=== PATIENT | male | born 1935 | race Caucasian/White ===

== ENCOUNTER 2017-09-14 07:19 | Day surgery (SDC) | payer MEDICARE ==
[2017-09-12 12:05] VITALS: BP 134/66
[2017-09-12 12:16] LABS: MEAN CORPUSCULAR HEMOGLOBIN 32.5 pg (27.0-33.0); MEAN CORPUSCULAR HGB CONC 34.5 g/dL (32.0-36.0); MEAN CORPUSCULAR VOLUME 94.4 fL (79-99); PLATELET COUNT (AUTO) 98 K/uL (130-400); RED BLOOD CELL COUNT(AUTO) 3.61 MIL/uL (4.50-6.20); RED CELL DISTRIBUTION WIDTH 13.3 % (11.0-15.5); WHITE BLOOD COUNT (AUTO) 2.7 K/uL (4.8-10.8)
[2017-09-12 12:29] LABS: INR 2.05 (0.85-1.15); PARTIAL THROMBOPLASTIN TIME 41.4 SEC (26.3-35.5); PROTHROMBIN TIME 21.2 SEC (9.6-11.6)
[2017-09-12 12:30] LABS: CREATININE 1.2 mg/dL (0.5-1.5); POTASSIUM 4.3 mmol/L (3.5-5.1)
[2017-09-12 13:05] LABS: EOSINOPHILS % (MANUAL) 3 % (1-6); LYMPHOCYTES % (MANUAL) 10 % (22-44); MAN.DIFF COMMENT-IMPRESSION MANUAL DIFFERENTIAL; MONOCYTES % (MANUAL) 14 % (2-9); SEGMENTED NEUTROPHILS % 73 % (40-70)
[2017-09-12 13:06] LABS: PLATELET MORPHOLOGY COMMENT DECREASED
[~2017-09-14] VITALS: Ht 172.7 cm; Wt 98.0 kg
[2017-09-14] VITALS (11 sets, daily range): BP systolic 104–151; BP diastolic 57–79
[~2017-09-14 07:19] MED LIST: DUTA1CPM PO; FURO20TA4 PO; GUAI-787 PO; METO-391 PO; NITR0.4T SL; PRAV80TA21 PO; SODIUM CHLORIDE 0.9% 1000ML 1,000 ML IV SCH; WARF6TAB49 PO; WARF7.5T49 PO
[2017-09-14] MEDS ORDERED: FLUT16H NASAL (08:48)
[2017-09-14] MEDS ORDERED: OLOP2.5D6 OP (08:52)
[2017-09-14] MEDS ORDERED: CEFAZOLIN 1GM / D5W 50ML 150 ML ONE (09:02)
[2017-09-14] MEDS ORDERED: BUPIVACAINE/PF 0.25% 30ML VIAL IJ ONE (09:02)
[2017-09-14] MEDS ORDERED: MEPERIDINE-PF 25 MG/ML SYG ONE ×2 (09:03→10:25)
[2017-09-14] MEDS ORDERED: LIDOCAINE HCL 1% MDV 50ML VIAL ONE (09:03)
[2017-09-14] MEDS ORDERED: MIDAZOLAM HCL 1 MG/ML 2ML VIAL ONE ×2 (09:03→10:25)
[2017-09-14] MEDS ORDERED: TRAM50TA4 PO (11:40)
[2017-09-14] MEDS ORDERED: ACETAMINOPHEN-CODEINE 300/30MG TAB PO PRN ×2 (11:45)
[2017-09-14] MEDS ORDERED: ACETAMINOPHEN 325 MG TAB PO PRN (11:45)
== END 2017-09-14 15:30 | disposition home or self-care (01) ==
LOC: DAH 07:19
PROVIDERS: ATTEND Internal Medicine Cardiovascular Disease
DX: Z45.02 Encounter for adjustment and management of automatic implantable cardiac defibrillator (principal); I48.0 Paroxysmal atrial fibrillation; I50.32 Chronic diastolic (congestive) heart failure; I25.10 Atherosclerotic heart disease of native coronary artery without angina pectoris; Z79.01 Long term (current) use of anticoagulants; I48.2 Chronic atrial fibrillation; I11.0 Hypertensive heart disease with heart failure; E78.00 Pure hypercholesterolemia, unspecified; Z98.890 Other specified postprocedural states; Z95.2 Presence of prosthetic heart valve; Z85.828 Personal history of other malignant neoplasm of skin
CPT/HCPCS: 33264; 36415; 80048; 85025; 85610; 85730; 93005; 99156; 99157; A4606; C1882; J0690; J2175 ×2; J2250 ×2; J3490 ×2; J7030; 99152; 99153

== ENCOUNTER 2018-10-29 17:22 | Observation (INO) | payer MEDICARE ==
[~2018-10-29] VITALS: Ht 175.3 cm; Wt 96.2 kg
[~2018-10-29 17:22] MED LIST changes: +FLUT16H NASAL; +OLOP2.5D6 OP; -SODIUM CHLORIDE 0.9% 1000ML 1,000 ML IV SCH; +TRAM50TA4 PO
[2018-10-29] MEDS ORDERED: ASPIRIN 325 MG TABLET ONE (17:35)
[2018-10-29 17:56] LABS: BASOPHILS % (AUTO) 0.7 % (0.0-5.0); EOSINOPHILS % (AUTO) 0.9 % (0.0-8.0); HEMATOCRIT 36.1 % (42-54); LYMPHOCYTES % (AUTO) 17.1 % (21.0-51.0); MEAN CORPUSCULAR HEMOGLOBIN 32.6 pg (27.0-33.0); MEAN CORPUSCULAR HGB CONC 34.4 g/dL (32.0-36.0); MEAN CORPUSCULAR VOLUME 94.9 fL (79-99); MONOCYTES % (AUTO) 9.3 % (3.0-13.0); NUCLEATED RED BLOOD CELLS 0.1 % (0.0-0.19); PLATELET COUNT (AUTO) 112 K/uL (130-400); RED BLOOD CELL COUNT(AUTO) 3.81 MIL/uL (4.50-6.20); RED CELL DISTRIBUTION WIDTH 13.9 % (11.0-15.5); WHITE BLOOD COUNT (AUTO) 3.9 K/uL (4.8-10.8)
[2018-10-29 18:09] LABS: CREATININE 1.2 mg/dL (0.5-1.5); INR 2.59 (0.85-1.15); PARTIAL THROMBOPLASTIN TIME 37.6 SEC (26.3-35.5); POTASSIUM 3.7 mmol/L (3.5-5.1); PROTHROMBIN TIME 26.7 SEC (9.6-11.6)
[2018-10-29 18:13] LABS: ALBUMIN 3.6 g/dL (3.5-5.0); BILIRUBIN,TOTAL 0.9 mg/dL (0.2-1.0); TOTAL PROTEIN, SERUM 6.7 g/dL (6.0-8.3)
[2018-10-29 18:24] LABS: B-TYPE NATRIURETIC PEPTIDE 238 pg/mL (0-100)
[2018-10-29] MEDS ORDERED: NITROGLYCERIN 1GM/1 INCH PACKET TD ONE (18:42)
[2018-10-29] MEDS ORDERED: ACETAMINOPHEN 325 MG TAB PO PRN (20:00)
[2018-10-29] MEDS ORDERED: ONDANSETRON HCL 4 MG/2 ML VIAL IVP PRN (20:00)
[2018-10-29 22:45] VITALS: BP 158/87
[2018-10-29] MEDS ORDERED: [UNRECOGNIZED DRUG - CODE] PO (23:13)
[2018-10-29] MEDS ORDERED: PRAV80TA21 PO (23:13)
[2018-10-29] MEDS ORDERED: FURO40TA5 PO (23:13)
[2018-10-29] MEDS ORDERED: TAMS0.4C32 PO (23:13)
[2018-10-29] MEDS ORDERED: NITROGLYCERIN 0.4 MG SL TAB SL PRN (23:15)
[2018-10-30] MEDS ORDERED: ONDANSETRON HCL MDV 20ML 2 MG/ML VIAL IVP PRN (01:30)
[2018-10-30] MEDS ORDERED: PHARMACY COMMUNICATION MISC SCH (02:00)
--- NOTE | 2018-10-30 03:16 | NUR ---
st elevation Paged Gregorio Cruz [facility] Specialist re st elevation as per desk monitor.Pt denies chest pain.
--- NOTE | 2018-10-30 03:26 | NUR ---
OPAL WILKINSON mosquito sprayer called and notified re st elevation,new order noted.
[2018-10-30 03:28] VITALS: BP 140/73
[2018-10-30 06:17] LABS: HEMATOCRIT 33.7 % (42-54); MEAN CORPUSCULAR HEMOGLOBIN 32.6 pg (27.0-33.0); MEAN CORPUSCULAR HGB CONC 34.1 g/dL (32.0-36.0); MEAN CORPUSCULAR VOLUME 95.7 fL (79-99); NUCLEATED RED BLOOD CELLS 0.1 % (0.0-0.19); PLATELET COUNT (AUTO) 111 K/uL (130-400); RED BLOOD CELL COUNT(AUTO) 3.52 MIL/uL (4.50-6.20); RED CELL DISTRIBUTION WIDTH 13.8 % (11.0-15.5); WHITE BLOOD COUNT (AUTO) 3.3 K/uL (4.8-10.8)
[2018-10-30 06:35] LABS: INR 2.56 (0.85-1.15); PROTHROMBIN TIME 26.4 SEC (9.6-11.6)
[2018-10-30 06:43] LABS: ALBUMIN 3.2 g/dL (3.5-5.0); BILIRUBIN,TOTAL 0.8 mg/dL (0.2-1.0); CREATININE 1.2 mg/dL (0.5-1.5); MAGNESIUM 1.7 mg/dL (1.80-2.40); PHOSPHORUS 3.1 mg/dL (2.5-4.9); POTASSIUM 3.8 mmol/L (3.5-5.1); TOTAL PROTEIN, SERUM 5.9 g/dL (6.0-8.3)
[2018-10-30 08:00] VITALS: BP 129/71
[2018-10-30] MEDS ORDERED: TAMSULOSIN HCL 0.4 MG CAP.ER.24H PO SCH (09:00)
[2018-10-30] MEDS ORDERED: DILTIAZEM HCL 180 MG CAP.SR.24H PO SCH (09:00)
[2018-10-30] MEDS ORDERED: FUROSEMIDE 40 MG TABLET PO SCH (09:00)
[2018-10-30] MEDS: OLOPATADINE HCL 0.1% 5ML DROPS OP SCH (09:26)
[2018-10-30 11:00] VITALS: BP 144/80
--- NOTE | 2018-10-30 11:59 | NUR ---
Diet Education Patient reports knowledge of Coumadin and Low Sodium Diet education. RD provided reference materials for Vitamin K foods and Low Sodium diet tips, that patient was receptive to. Patient verbalized understanding. RD to follow-up. Addendum: 10/30/18 at [address] Amended: Links added.
--- NOTE | 2018-10-30 12:07 | NUR ---
RD Notification Upon visit, patient reports good appetite at 75% with no report of GI distress. Patient tolerating Heart Healthy diet. Patient LBM 10/29/18. RD provided informational handouts for Coumadin diet education and low sodium diet education. Patient was receptive. Patient monitored labs: Mg 1.70, Alb 3.2. Patient with updated food preferences. Patient with 2+, Bilateral ankle, non-pitting edema. Rec to continue on Heart Healthy Diet. RD to continue to monitor. Please notify RD as nutritional concerns arise. Thank you. Addendum: 10/30/18 at [address] RD Amended: Links added.
[2018-10-30 16:00] VITALS: BP 149/79
--- NOTE | 2018-10-30 17:00 | NUR ---
ABRAM SIERRA W PATIENT, AAOX3, ENG SPEAKING,, IND OF ADLS, NO DME EXCEPT CANE AT HOME, [facility] WILL PROVIDE TRANSPORT, PLAN IS HOME Addendum: 10/30/18 at 1826 by LISA LITTLE RN CM Amended: Links added.
[2018-10-30 20:00] VITALS: BP 160/88
[2018-10-30] MEDS ORDERED: WARFARIN SODIUM 2 MG TAB PO SCH (21:00)
[2018-10-30] MEDS ORDERED: WARFARIN SODIUM 7.5 MG TAB PO SCH ×2 (21:00)
[2018-10-30] MEDS ORDERED: ATORVASTATIN CALCIUM 20 MG TABLET PO SCH (21:00)
[2018-10-30] MEDS ORDERED: WARFARIN SODIUM 5 MG TAB PO SCH (21:00)
--- NOTE | 2018-10-30 21:30 | NUR ---
HOME MEDS Pt wants to take his own home meds.Medications given to Susanne [facility] for labeling.
[2018-10-31 00:43] VITALS: BP 154/86
[2018-10-31 04:38] VITALS: BP 159/82
[2018-10-31 05:25] LABS: INR 2.53 (0.85-1.15); PROTHROMBIN TIME 26.1 SEC (9.6-11.6)
--- NOTE | 2018-10-31 07:15 | NUR ---
NPO Pt npo for stress test,denies chest pain.
[2018-10-31] MEDS ORDERED: FINA5TAB41 PO (07:49)
[2018-10-31 08:00] VITALS: BP 143/79
[2018-10-31] MEDS: OLOPATADINE HCL 0.1% 5ML DROPS OP SCH (09:00)
[2018-10-31] MEDS ORDERED: DILTIAZEM HCL 180 MG PO SCH (09:00)
[2018-10-31] MEDS ORDERED: FUROSEMIDE 40 MG PO SCH (09:00)
[2018-10-31] MEDS ORDERED: TAMSULOSIN HCL 0.4 MG PO SCH (09:00)
[2018-10-31] MEDS: REGADENOSON 0.4 MG/5 ML PF SYG IVP SCH ×2 (12:45→16:17)
[2018-10-31] MEDS ORDERED: MAGNESIUM 2GM PREMIX 50ML 50 ML IV PRN (14:45)
[2018-10-31] MEDS ORDERED: WARFARIN SODIUM 7.5 MG PO SCH (16:00)
[2018-10-31 16:57] VITALS: BP 158/82
[2018-10-31 20:00] VITALS: BP 132/58
--- NOTE | 2018-10-31 20:00 | NUR ---
DISCHARGE ORDER Dr GUTIÉRREZ CAME AND DISCHARGE PT.NOTIFIED YUMI WILKINSON NP FOR BENCHMARK.PT ANXIOUS TO GO HOME.
--- NOTE | 2018-10-31 20:20 | NUR ---
DISCHARGED HOME Pt discharged home,iv dcd.cath tip intact,applied pressure until bleeding stopped.Pt verbalized understanding of instructions given.
[2018-10-31] MEDS ORDERED: PRAVASTATIN 80 MG PO SCH (21:00)
[2018-11-01] MEDS ORDERED: FINASTERIDE 5 MG TABLET PO SCH (09:00)
== END 2018-10-31 20:20 | disposition home or self-care (01) ==
LOC: EDH 17:22 → EDHIP 18:45 → 3BH 22:09 → EDHIP 22:10 → 3BH 22:20
PROVIDERS: ADMIT Internal Medicine Pulmonary Disease; ATTEND Internal Medicine Pulmonary Disease
DX: M94.0 Chondrocostal junction syndrome [Tietze] (principal); E78.00 Pure hypercholesterolemia, unspecified; E78.5 Hyperlipidemia, unspecified; I12.9 Hypertensive chronic kidney disease with stage 1 through stage 4 chronic kidney disease, or unspecified chronic kidney disease; N18.3 Chronic kidney disease, stage 3 (moderate); I25.10 Atherosclerotic heart disease of native coronary artery without angina pectoris; I35.0 Nonrheumatic aortic (valve) stenosis; I25.2 Old myocardial infarction; I42.9 Cardiomyopathy, unspecified; I48.2 Chronic atrial fibrillation; I49.5 Sick sinus syndrome; Z95.2 Presence of prosthetic heart valve; Z95.5 Presence of coronary angioplasty implant and graft; Z85.828 Personal history of other malignant neoplasm of skin; Z95.810 Presence of automatic (implantable) cardiac defibrillator; Z79.01 Long term (current) use of anticoagulants; Z79.899 Other long term (current) drug therapy
CPT/HCPCS: 36415 ×3; 71045 ×2; 78452; 80053 ×2; 82550; 83735; 83880; 84100; 84484 ×3; 85025; 85027; 85610 ×3; 85730; 93005 ×2; 93017; 99284; A9500 ×2; G0378 ×50; J2785; 96374